=== PATIENT | female | born 1970 | race Caucasian/White ===

== ENCOUNTER 2018-09-14 17:49 | Emergency (ER) | payer OTHER ==
[~2018-09-14] VITALS: Ht 170.2 cm; Wt 126.0 kg
[~2018-09-14 17:49] MED LIST: ALPR-624 PO; IBUP-1051 PO; IBUP-1986 PO; TRAZ-89 PO
[2018-09-14 18:01] VITALS: BP 129/87
[2018-09-14] MEDS ORDERED: CLIN150C2 PO (18:37)
== END 2018-09-14 18:44 | disposition home or self-care (01) ==
LOC: ER 17:49
DX: H66.93 Otitis media, unspecified, bilateral (principal); J45.909 Unspecified asthma, uncomplicated; G89.29 Other chronic pain; Z98.890 Other specified postprocedural states; Z88.2 Allergy status to sulfonamides; Z79.2 Long term (current) use of antibiotics; Z79.899 Other long term (current) drug therapy
CPT/HCPCS: 99283

== ENCOUNTER 2018-11-10 20:53 | Emergency (ER) | payer OTHER ==
[~2018-11-10] VITALS: Ht 170.2 cm; Wt 113.0 kg
[2018-11-10 21:02] VITALS: BP 134/90
[2018-11-10] MEDS ORDERED: ibuprofen tablet 400 MG TABLET PO ONE (21:55)
[2018-11-10] MEDS ORDERED: acetaminophen 325mg tablet PO ONE (21:55)
== END 2018-11-10 22:20 | disposition home or self-care (01) ==
LOC: ER 20:54
DX: M25.521 Pain in right elbow (principal); J45.909 Unspecified asthma, uncomplicated; M19.90 Unspecified osteoarthritis, unspecified site; G89.29 Other chronic pain; Z98.890 Other specified postprocedural states; Z88.2 Allergy status to sulfonamides; Z79.899 Other long term (current) drug therapy
CPT/HCPCS: 73080; 99283

== ENCOUNTER 2018-12-09 17:48 | Emergency (ER) | payer OTHER ==
[~2018-12-09] VITALS: Ht 170.2 cm; Wt 119.0 kg
--- NOTE | 2018-12-09 19:45 | NUR ---
pt up to bathroom. apoligized for wait. patient is ok and understanding
[2018-12-09 21:25] LABS: ALANINE AMINOTRANSFERASE 21 U/L (12-78); ALBUMIN 3.7 G/DL (3.4-5.0); ALBUMIN/GLOBULIN RATIO 1.1 (1.1-1.5); ALKALINE PHOSPHATASE 69 IU/L (46-116); ANION GAP 8 (8-16); ASPARTATE AMINO TRANSFERASE 19 U/L (10-37); BILIRUBIN,TOTAL 0.3 MG/DL (0.1-1.0); BLOOD UREA NITROGEN 14 MG/DL (7-18); BUN/CREATININE RATIO 19.4 (6.6-38.0); CALCIUM 8.7 MG/DL (8.5-10.1); CHLORIDE 105 MMOL/L (99-107); CREATININE 0.72 MG/DL (0.40-0.90); GLUCOSE 90 MG/DL (70-104); POTASSIUM 4.2 MMOL/L (3.5-5.1); SODIUM 138 MMOL/L (135-145); TOTAL PROTEIN 7.2 G/DL (6.4-8.2); eGFR 87 ML/MIN
--- NOTE | 2018-12-09 21:26 | NUR ---
pt updated on plan- waiting labs.
[2018-12-09] MEDS ORDERED: ibuprofen tablet 400 MG TABLET PO ONE (21:55)
[2018-12-09 21:57] LABS: BASOPHILS % (AUTO) 0.2 % (0-1); EOSINOPHILS # (AUTO) 0.3 X10'3 (0-0.9); EOSINOPHILS % (AUTO) 3.2 % (0-6); HEMOGLOBIN 13.9 g/dl (12.0-16.0); LYMPHOCYTES # (AUTO) 3.7 X10'3 (1.1-4.8); LYMPHOCYTES % (AUTO) 36.5 % (21-51); MEAN CORPUSCULAR HEMOGLOBIN 32.6 PG (27.0-31.0); MEAN CORPUSCULAR HGB CONC 33.9 g/dL (33.0-36.5); MEAN CORPUSCULAR VOLUME 96.2 FL (78-98); MONOCYTES # (AUTO) 0.5 X10'3 (0-0.9); MONOCYTES % (AUTO) 5.1 % (2-12); NEUTROPHILS # (AUTO) 5.5 X10'3 (1.8-7.7); PLATELET COUNT 216 X10'3 (140-440); RED BLOOD COUNT 4.26 X10'6 (4.20-5.60); RED CELL DISTRIBUTION WIDTH 13.7 % (11.5-14.5); WHITE BLOOD COUNT 10.1 X10'3 (4.5-11.0)
[2018-12-09] MEDS ORDERED: dexamethasone sod phosphate 10mg/ml inj PO STA (22:01)
[2018-12-09 22:02] LABS: C-REACTIVE PROTEIN < 0.05 MG/DL (0.0-0.5)
[2018-12-09] MEDS ORDERED: AMOX-580 PO (22:04)
[2018-12-09] MEDS ORDERED: iohexol 300mg/ml 100ml inj. ONE (22:28)
--- NOTE | 2018-12-09 22:33 | NUR ---
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 she states she will let me know if she needs it
[2018-12-09] MEDS: morphine 4 MG/ML inj SYRINge IV ONE ×2 (22:36→23:13)
--- NOTE | 2018-12-09 23:09 | NUR ---
pt decided she will take the morphine and call for a ride home
[2018-12-09] MEDS ORDERED: PRED20TA PO (23:22)
[2018-12-09 23:31] VITALS: BP 115/81
== END 2018-12-09 23:35 | disposition home or self-care (01) ==
LOC: ER 17:48
DX: J32.9 Chronic sinusitis, unspecified (principal); J45.909 Unspecified asthma, uncomplicated; M19.90 Unspecified osteoarthritis, unspecified site; G89.29 Other chronic pain; Z88.2 Allergy status to sulfonamides; Z79.899 Other long term (current) drug therapy; Z98.890 Other specified postprocedural states
CPT/HCPCS: 36415; 70487; 70491; 80053; 84145; 85025; 86140; 96374; 99284; J1100; J2270; Q9967

== ENCOUNTER 2019-07-20 10:11 | Emergency (ER) | payer OTHER ==
[~2019-07-20] VITALS: Ht 172.7 cm; Wt 125.2 kg
[2019-07-20] MEDS ORDERED: ondansetron/PF 4mg/2ml inj IV ONE (10:40)
[2019-07-20] MEDS ORDERED: ketorolac tromethamine 15mg/ml inj. IV ONE (10:40)
[2019-07-20] MEDS ORDERED: normal saline 1000ML IV soln IVB ONE (10:40)
[2019-07-20 11:03] LABS: CLARITY,URINE CLEAR (Clear); COLOR,URINE YELLOW (Yellow); GLUCOSE, URINE NEGATIVE (Neg); KETONES,URINE NEGATIVE (Neg); LEUKOCYTE ESTERASE ,URINE NEGATIVE (Neg); NITRITES, URINE NEGATIVE (Neg); OCCULT BLOOD,URINE LARGE (Neg); PH,URINE 5.5 (4.8-8.0); PROTEIN,URINE NEGATIVE (Neg); UROBILINOGEN,URINE 0.2 E.U/dL (0.2-1.0)
[2019-07-20 11:05] LABS: BASOPHILS % (AUTO) 0.6 % (0-1); EOSINOPHILS # (AUTO) 0.1 X10'3 (0-0.9); EOSINOPHILS % (AUTO) 2.5 % (0-6); HEMOGLOBIN 13.8 g/dl (12.0-16.0); LYMPHOCYTES # (AUTO) 2.5 X10'3 (1.1-4.8); LYMPHOCYTES % (AUTO) 49.4 % (21-51); MEAN CORPUSCULAR HEMOGLOBIN 33.3 PG (27.0-31.0); MEAN CORPUSCULAR HGB CONC 34.4 g/dL (33.0-36.5); MEAN CORPUSCULAR VOLUME 96.6 FL (78-98); MEAN PLATELET VOLUME 8.5 FL (7.4-10.4); MONOCYTES # (AUTO) 0.4 X10'3 (0-0.9); MONOCYTES % (AUTO) 7.5 % (2-12); PLATELET COUNT 214 X10'3 (140-440); RED BLOOD COUNT 4.15 X10'6 (4.20-5.60); RED CELL DISTRIBUTION WIDTH 12.1 % (11.5-14.5); WHITE BLOOD COUNT 5.1 X10'3 (4.5-11.0)
[2019-07-20 11:06] LABS: UA COLLECTION TYPE CLN CATCH MIDSTREAM
[2019-07-20 11:09] LABS: BACTERIA,URINE FEW /HPF (Neg); MUCUS STRANDS NONE SEEN /LPF (Neg); SQUAMOUS EPITHELIAL CELL,UR FEW /LPF (FEW); WBC,URINE 0-4 /HPF (0-4)
[2019-07-20 11:18] LABS: ALANINE AMINOTRANSFERASE 17 U/L (12-78); ALBUMIN 3.4 G/DL (3.4-5.0); ALKALINE PHOSPHATASE 48 IU/L (46-116); ANION GAP 9 (8-16); ASPARTATE AMINO TRANSFERASE 13 U/L (10-37); BILIRUBIN,TOTAL 0.4 MG/DL (0.1-1.0); BLOOD UREA NITROGEN 5 MG/DL (7-18); BUN/CREATININE RATIO 6.9 (6.6-38.0); CALCIUM 8.1 MG/DL (8.5-10.1); CHLORIDE 109 MMOL/L (99-107); CREATININE 0.72 MG/DL (0.40-0.90); GLUCOSE 102 MG/DL (70-104); LIPASE 110 U/L (73-393); POTASSIUM 4.2 MMOL/L (3.5-5.1); SODIUM 143 MMOL/L (135-145); TOTAL CARBON DIOXIDE 24.8 MMOL/L (24-32); TOTAL PROTEIN 6.7 G/DL (6.4-8.2); eGFR 87 ML/MIN
[2019-07-20] MEDS ORDERED: morphine 4 MG/ML inj SYRINge IV ONE (12:10)
[2019-07-20] MEDS ORDERED: ONDA4TAB6 PO (12:34)
[2019-07-20 12:35] LABS: URINE HCG NEGATIVE (NEG)
[2019-07-20 12:51] VITALS: BP 112/55
== END 2019-07-20 12:52 | disposition home or self-care (01) ==
LOC: ER 10:13
DX: R10.823 Right lower quadrant rebound abdominal tenderness (principal); R10.32 Left lower quadrant pain; R31.9 Hematuria, unspecified; J45.909 Unspecified asthma, uncomplicated; M19.90 Unspecified osteoarthritis, unspecified site; G89.29 Other chronic pain; Z98.890 Other specified postprocedural states; Z88.2 Allergy status to sulfonamides; Z79.899 Other long term (current) drug therapy
CPT/HCPCS: 36415; 74176; 80053; 81001; 81025; 83690; 85025; 85610; 96374; 96375; 99284; J1885; J2270; J2405; J7030

== ENCOUNTER 2019-08-03 18:47 | Emergency (ER) | payer OTHER ==
[~2019-08-03] VITALS: Ht 172.7 cm; Wt 122.0 kg
[~2019-08-03 18:47] MED LIST changes: +ONDA4TAB6 PO
[2019-08-03 18:56] VITALS: BP 121/82
[2019-08-03] MEDS ORDERED: amox tr/potassium clavulanate 875/125mg TAB PO ONE (19:20)
[2019-08-03] MEDS ORDERED: ketorolac trometh inj. 60 MG/2 ML VIAL IM ONE (19:20)
[2019-08-03] MEDS ORDERED: AMOX-580 PO (19:24)
[2019-08-03] MEDS ORDERED: HYDR-4353 PO (19:24)
== END 2019-08-03 19:32 | disposition home or self-care (01) ==
LOC: ER 18:47
DX: L08.89 Other specified local infections of the skin and subcutaneous tissue (principal); T50.B95A Adverse effect of other viral vaccines, initial encounter; R53.81 Other malaise; J45.909 Unspecified asthma, uncomplicated; M19.90 Unspecified osteoarthritis, unspecified site; G89.29 Other chronic pain; Z98.890 Other specified postprocedural states; Z88.2 Allergy status to sulfonamides; Z79.2 Long term (current) use of antibiotics; Z79.899 Other long term (current) drug therapy; Y92.89 Other specified places as the place of occurrence of the external cause
CPT/HCPCS: 96372; 99284; J1885

== ENCOUNTER 2019-09-19 23:02 | Emergency (ER) | payer OTHER ==
[~2019-09-19] VITALS: Ht 172.7 cm; Wt 122.7 kg
[2019-09-19 23:24] VITALS: BP 131/80
[2019-09-20] MEDS ORDERED: ALBU8HFA PO (00:44)
[2019-09-20] MEDS ORDERED: AMOX500C2 PO (00:48)
[2019-09-20] MEDS ORDERED: amoxicillin 250mg capsule PO ONE (00:55)
== END 2019-09-20 01:05 | disposition home or self-care (01) ==
LOC: ER 23:02
DX: H66.93 Otitis media, unspecified, bilateral (principal); J45.909 Unspecified asthma, uncomplicated; M19.90 Unspecified osteoarthritis, unspecified site; G89.29 Other chronic pain; Z98.890 Other specified postprocedural states; Z88.2 Allergy status to sulfonamides; Z79.2 Long term (current) use of antibiotics; Z79.899 Other long term (current) drug therapy
CPT/HCPCS: 99283

== ENCOUNTER 2020-02-20 18:51 | Emergency (ER) | payer OTHER ==
[~2020-02-20] VITALS: Ht 172.7 cm; Wt 125.0 kg
[2020-02-20] MEDS ORDERED: ketorolac trometh. 30mg/ml inj. IM ONE (19:25)
[2020-02-20] MEDS ORDERED: BUTA-281 PO (19:28)
[2020-02-20 19:38] VITALS: BP 119/92
== END 2020-02-20 19:40 | disposition home or self-care (01) ==
LOC: ER 18:51
DX: R51 Headache (principal); M19.90 Unspecified osteoarthritis, unspecified site; G89.29 Other chronic pain; J45.909 Unspecified asthma, uncomplicated; Z98.890 Other specified postprocedural states; Z72.89 Other problems related to lifestyle; Z88.2 Allergy status to sulfonamides; Z79.899 Other long term (current) drug therapy
CPT/HCPCS: 96372; 99283; J1885

== ENCOUNTER 2020-05-22 19:11 | Emergency (ER) | payer BC, OTHER ==
[~2020-05-22] VITALS: Ht 170.2 cm; Wt 127.3 kg
[~2020-05-22 19:11] MED LIST changes: +BUTA-281 PO
[2020-05-22 19:17] VITALS: BP 135/88
[2020-05-22 20:25] LABS: D-DIMER 0.87 MG/L FEU (0-0.50)
[2020-05-22] MEDS ORDERED: ONDA4TAB6 PO (21:40)
[2020-05-22] MEDS ORDERED: HYDR-3965 PO (21:40)
== END 2020-05-22 21:52 | disposition home or self-care (01) ==
LOC: ER 19:13
DX: M25.572 Pain in left ankle and joints of left foot (principal); R22.42 Localized swelling, mass and lump, left lower limb; J45.909 Unspecified asthma, uncomplicated; M19.90 Unspecified osteoarthritis, unspecified site; G89.29 Other chronic pain; Z86.711 Personal history of pulmonary embolism; Z86.718 Personal history of other venous thrombosis and embolism; Z98.890 Other specified postprocedural states; Z88.2 Allergy status to sulfonamides; Z79.899 Other long term (current) drug therapy
CPT/HCPCS: 36415; 73610; 85379; 93005; 93971; 99285

== ENCOUNTER 2020-07-02 11:49 | Emergency (ER) | payer BC, OTHER ==
[~2020-07-02] VITALS: Ht 172.7 cm; Wt 138.2 kg
[2020-07-02] MEDS ORDERED: normal saline 1000ML IV soln IVB ONE (12:20)
[2020-07-02] MEDS ORDERED: ondansetron/PF 4mg/2ml inj IV ONE (12:20)
[2020-07-02 12:26] LABS: CLARITY,URINE CLEAR (Clear); COLOR,URINE STRAW (Yellow); GLUCOSE, URINE NEGATIVE (Neg); KETONES,URINE NEGATIVE (Neg); LEUKOCYTE ESTERASE ,URINE NEGATIVE (Neg); NITRITES, URINE NEGATIVE (Neg); OCCULT BLOOD,URINE NEGATIVE (Neg); PROTEIN,URINE NEGATIVE (Neg); UROBILINOGEN,URINE 0.2 E.U/dL (0.2-1.0)
[2020-07-02 12:27] LABS: UA COLLECTION TYPE CLN CATCH MIDSTREAM; URINE HCG NEGATIVE (NEG)
[2020-07-02 12:35] LABS: BASOPHILS % (AUTO) 0.5 % (0-1); EOSINOPHILS # (AUTO) 0.1 X10'3 (0-0.9); EOSINOPHILS % (AUTO) 1.8 % (0-6); HEMATOCRIT 41.5 % (35.0-45.0); HEMOGLOBIN 14.2 g/dl (12.0-16.0); LYMPHOCYTES # (AUTO) 3.4 X10'3 (1.1-4.8); LYMPHOCYTES % (AUTO) 43.4 % (21-51); MEAN CORPUSCULAR HEMOGLOBIN 32.4 PG (27.0-31.0); MEAN CORPUSCULAR HGB CONC 34.2 g/dL (33.0-36.5); MEAN CORPUSCULAR VOLUME 94.7 FL (78-98); MEAN PLATELET VOLUME 8.7 FL (7.4-10.4); MONOCYTES # (AUTO) 0.4 X10'3 (0-0.9); MONOCYTES % (AUTO) 5.4 % (2-12); NEUTROPHILS # (AUTO) 3.9 X10'3 (1.8-7.7); NEUTROPHILS % (AUTO) 48.9 % (42-75); PLATELET COUNT 234 X10'3 (140-440); RED BLOOD COUNT 4.38 X10'6 (4.20-5.60); RED CELL DISTRIBUTION WIDTH 12.3 % (11.5-14.5); WHITE BLOOD COUNT 7.9 X10'3 (4.5-11.0)
[2020-07-02 12:47] LABS: ALANINE AMINOTRANSFERASE 23 U/L (12-78); ALBUMIN 3.8 G/DL (3.4-5.0); ALKALINE PHOSPHATASE 62 IU/L (46-116); ANION GAP 7 (8-16); ASPARTATE AMINO TRANSFERASE 18 U/L (10-37); BILIRUBIN,TOTAL 0.3 MG/DL (0.1-1.0); BLOOD UREA NITROGEN 12 MG/DL (7-18); BUN/CREATININE RATIO 12.9 (6.6-38.0); CALCIUM 9.1 MG/DL (8.5-10.1); CHLORIDE 104 MMOL/L (99-107); CREATININE 0.93 MG/DL (0.40-0.90); GLUCOSE 107 MG/DL (70-104); LIPASE 144 U/L (73-393); POTASSIUM 4.2 MMOL/L (3.5-5.1); SODIUM 138 MMOL/L (135-145); TOTAL CARBON DIOXIDE 26.8 MMOL/L (24-32); TOTAL PROTEIN 7.5 G/DL (6.4-8.2); eGFR 65 ML/MIN
[2020-07-02] MEDS ORDERED: ketorolac tromethamine 15mg/ml inj. IV ONE (13:15)
[2020-07-02] MEDS ORDERED: morphine 4 MG/ML inj SYRINge IV ONE (13:15)
[2020-07-02 14:25] VITALS: BP 118/71
== END 2020-07-02 14:32 | disposition home or self-care (01) ==
LOC: ER 11:50
DX: K57.30 Diverticulosis of large intestine without perforation or abscess without bleeding (principal); K76.0 Fatty (change of) liver, not elsewhere classified; R35.0 Frequency of micturition; J45.909 Unspecified asthma, uncomplicated; M19.90 Unspecified osteoarthritis, unspecified site; G89.29 Other chronic pain; Z86.73 Personal history of transient ischemic attack (TIA), and cerebral infarction without residual deficits; Z72.89 Other problems related to lifestyle; Z88.2 Allergy status to sulfonamides; Z79.899 Other long term (current) drug therapy
CPT/HCPCS: 36415; 74176; 80053; 81003; 81025; 83690; 85025; 96361; 96374; 96375; 99284; J1885; J2270; J2405; J7030

== ENCOUNTER 2021-08-16 11:57 | Emergency (ER) | payer BC, OTHER ==
[~2021-08-16] VITALS: Ht 172.7 cm; Wt 129.0 kg
[2021-08-16 13:22] LABS: BASOPHILS % (AUTO) 0.2 % (0-1); EOSINOPHILS % (AUTO) 0.2 % (0-6); HEMATOCRIT 42.1 % (35.0-45.0); HEMOGLOBIN 14.2 g/dl (12.0-16.0); LYMPHOCYTES # (AUTO) 2.6 X10'3 (1.1-4.8); LYMPHOCYTES % (AUTO) 20.8 % (21-51); MEAN CORPUSCULAR HEMOGLOBIN 32.1 PG (27.0-31.0); MEAN CORPUSCULAR HGB CONC 33.6 g/dL (33.0-36.5); MEAN CORPUSCULAR VOLUME 95.6 FL (78-98); MEAN PLATELET VOLUME 8.4 FL (7.4-10.4); MONOCYTES # (AUTO) 0.8 X10'3 (0-0.9); NEUTROPHILS # (AUTO) 9.1 X10'3 (1.8-7.7); NEUTROPHILS % (AUTO) 72.8 % (42-75); PLATELET COUNT 247 X10'3 (140-440); RED BLOOD COUNT 4.41 X10'6 (4.20-5.60); WHITE BLOOD COUNT 12.5 X10'3 (4.5-11.0)
[2021-08-16 13:35] LABS: D-DIMER 0.58 MG/L FEU (0-0.50)
[2021-08-16 13:43] LABS: ALANINE AMINOTRANSFERASE 16 U/L (12-78); ALBUMIN 3.5 G/DL (3.4-5.0); ALKALINE PHOSPHATASE 68 IU/L (46-116); ANION GAP 6 (8-16); ASPARTATE AMINO TRANSFERASE 11 U/L (10-37); BILIRUBIN,TOTAL 0.5 MG/DL (0.1-1.0); BLOOD UREA NITROGEN 17 MG/DL (7-18); BUN/CREATININE RATIO 18.1 (6.6-38.0); CALCIUM 8.6 MG/DL (8.5-10.1); CHLORIDE 106 MMOL/L (99-107); CREATININE 0.94 MG/DL (0.40-0.90); GLUCOSE 112 MG/DL (70-104); POTASSIUM 3.7 MMOL/L (3.5-5.1); SODIUM 139 MMOL/L (135-145); TOTAL CARBON DIOXIDE 26.6 MMOL/L (24-32); TOTAL PROTEIN 7.1 G/DL (6.4-8.2); eGFR 63 ML/MIN
[2021-08-16] MEDS ORDERED: iohexol 350MG/ML 100ml bottle IV ONE (14:22)
--- NOTE | 2021-08-16 14:22 | NUR ---
CT AWARE PT HAS IV IN LEFT AC
[2021-08-16 14:53] VITALS: BP 134/77
[2021-08-16] MEDS ORDERED: RIVA15TA PO (16:07)
== END 2021-08-16 16:35 | disposition home or self-care (01) ==
LOC: ER 11:58
DX: J02.9 Acute pharyngitis, unspecified (principal); J81.0 Acute pulmonary edema; J45.909 Unspecified asthma, uncomplicated; Z88.2 Allergy status to sulfonamides; Z79.899 Other long term (current) drug therapy; Z20.822 Contact with and (suspected) exposure to COVID-19
CPT/HCPCS: 36415; 71045; 71275; 80053; 85025; 85379; 87635; 99285; C9803; Q9967

== ENCOUNTER 2021-09-02 16:39 | Emergency (ER) | payer BC ==
[~2021-09-02] VITALS: Ht 172.7 cm; Wt 140.0 kg
[~2021-09-02 16:39] MED LIST changes: +RIVA15TA PO
[2021-09-02 22:39] VITALS: BP 129/79
== END 2021-09-02 23:32 | disposition home or self-care (01) ==
LOC: ER 16:40
DX: S80.11XA Contusion of right lower leg, initial encounter (principal); R07.89 Other chest pain; R05.9 Cough, unspecified; J45.909 Unspecified asthma, uncomplicated; M19.90 Unspecified osteoarthritis, unspecified site; G89.29 Other chronic pain; Z86.711 Personal history of pulmonary embolism; Z86.718 Personal history of other venous thrombosis and embolism; Z98.890 Other specified postprocedural states; Z72.89 Other problems related to lifestyle; Z88.2 Allergy status to sulfonamides; Z79.899 Other long term (current) drug therapy; X58.XXXA Exposure to other specified factors, initial encounter; Y93.89 Activity, other specified; Y92.89 Other specified places as the place of occurrence of the external cause; Y99.8 Other external cause status
CPT/HCPCS: 71045; 93005; 93971; 99284

== ENCOUNTER 2021-12-18 10:20 | Emergency (ER) | payer BC ==
[~2021-12-18] VITALS: Ht 172.7 cm; Wt 144.0 kg
[2021-12-18 10:36] VITALS: BP 141/84
[2021-12-18 11:02] LABS: BASOPHILS % (AUTO) 0.3 % (0-1); EOSINOPHILS # (AUTO) 0.1 X10'3 (0-0.9); EOSINOPHILS % (AUTO) 1.1 % (0-6); HEMATOCRIT 41.1 % (35.0-45.0); LYMPHOCYTES # (AUTO) 3.6 X10'3 (1.1-4.8); LYMPHOCYTES % (AUTO) 48.2 % (21-51); MEAN CORPUSCULAR HEMOGLOBIN 31.8 PG (27.0-31.0); MEAN CORPUSCULAR VOLUME 93.5 FL (78-98); MEAN PLATELET VOLUME 8.4 FL (7.4-10.4); MONOCYTES # (AUTO) 0.4 X10'3 (0-0.9); MONOCYTES % (AUTO) 5.5 % (2-12); NEUTROPHILS # (AUTO) 3.3 X10'3 (1.8-7.7); NEUTROPHILS % (AUTO) 44.9 % (42-75); PLATELET COUNT 212 X10'3 (140-440); RED BLOOD COUNT 4.39 X10'6 (4.20-5.60); RED CELL DISTRIBUTION WIDTH 12.6 % (11.5-14.5); WHITE BLOOD COUNT 7.4 X10'3 (4.5-11.0)
[2021-12-18 11:20] LABS: ALANINE AMINOTRANSFERASE 20 U/L (12-78); ALBUMIN 3.6 G/DL (3.4-5.0); ALKALINE PHOSPHATASE 56 IU/L (46-116); ANION GAP 9 (8-16); ASPARTATE AMINO TRANSFERASE 17 U/L (10-37); BILIRUBIN,TOTAL 0.4 MG/DL (0.1-1.0); BLOOD UREA NITROGEN 13 MG/DL (7-18); BUN/CREATININE RATIO 17.1 (6.6-38.0); CALCIUM 8.8 MG/DL (8.5-10.1); CHLORIDE 106 MMOL/L (99-107); CREATININE 0.76 MG/DL (0.40-0.90); GLUCOSE 113 MG/DL (70-104); POTASSIUM 3.9 MMOL/L (3.5-5.1); SODIUM 140 MMOL/L (135-145); TOTAL CARBON DIOXIDE 25.3 MMOL/L (24-32); TOTAL PROTEIN 7.2 G/DL (6.4-8.2); eGFR 81 ML/MIN
== END 2021-12-18 15:07 | disposition home or self-care (01) ==
LOC: ER 10:21
DX: R07.9 Chest pain, unspecified (principal); R04.2 Hemoptysis; J45.909 Unspecified asthma, uncomplicated; G89.29 Other chronic pain; Z88.2 Allergy status to sulfonamides
CPT/HCPCS: 36415; 71045; 80053; 83880; 84484; 85025; 93005; 99285

== ENCOUNTER 2022-01-21 09:41 | Emergency (ER) | payer BC ==
[~2022-01-21] VITALS: Ht 172.7 cm; Wt 142.0 kg
[2022-01-21 09:52] VITALS: BP 144/83
== END 2022-01-21 11:10 | disposition home or self-care (01) ==
LOC: ER 09:41
DX: M79.672 Pain in left foot (principal); J45.909 Unspecified asthma, uncomplicated; M19.90 Unspecified osteoarthritis, unspecified site; G89.29 Other chronic pain; Z86.711 Personal history of pulmonary embolism; Z86.718 Personal history of other venous thrombosis and embolism; Z98.890 Other specified postprocedural states; Z72.89 Other problems related to lifestyle; Z88.2 Allergy status to sulfonamides; Z79.899 Other long term (current) drug therapy
CPT/HCPCS: 73630; 99283

== ENCOUNTER 2022-11-06 15:43 | Emergency (ER) | payer BC ==
[~2022-11-06] VITALS: Ht 172.7 cm; Wt 129.0 kg
[2022-11-06 15:51] VITALS: BP 135/88
[2022-11-06 15:56] LABS: BASOPHILS % (AUTO) 0.6 % (0-1); EOSINOPHILS # (AUTO) 0.1 X10'3 (0-0.9); EOSINOPHILS % (AUTO) 1.3 % (0-6); HEMATOCRIT 40.5 % (35.0-45.0); HEMOGLOBIN 13.7 g/dl (12.0-16.0); LYMPHOCYTES # (AUTO) 3.5 X10'3 (1.1-4.8); LYMPHOCYTES % (AUTO) 41.8 % (21-51); MEAN CORPUSCULAR HEMOGLOBIN 32.4 PG (27.0-31.0); MEAN CORPUSCULAR HGB CONC 33.9 g/dL (33.0-36.5); MEAN CORPUSCULAR VOLUME 95.6 FL (78-98); MEAN PLATELET VOLUME 8.2 FL (7.4-10.4); MONOCYTES # (AUTO) 0.6 X10'3 (0-0.9); MONOCYTES % (AUTO) 6.7 % (2-12); NEUTROPHILS # (AUTO) 4.2 X10'3 (1.8-7.7); NEUTROPHILS % (AUTO) 49.6 % (42-75); PLATELET COUNT 207 X10'3 (140-440); RED BLOOD COUNT 4.24 X10'6 (4.20-5.60); RED CELL DISTRIBUTION WIDTH 13.3 % (11.5-14.5); WHITE BLOOD COUNT 8.4 X10'3 (4.5-11.0)
[2022-11-06 16:18] LABS: ALANINE AMINOTRANSFERASE 20 U/L (12-78); ALBUMIN 3.6 G/DL (3.4-5.0); ALBUMIN/GLOBULIN RATIO 1.1 (1.1-1.5); ALKALINE PHOSPHATASE 75 IU/L (46-116); ANION GAP 6 (8-16); ASPARTATE AMINO TRANSFERASE 26 U/L (10-37); BILIRUBIN,TOTAL 0.4 MG/DL (0.1-1.0); BLOOD UREA NITROGEN 9 MG/DL (7-18); BUN/CREATININE RATIO 10.8 (6.6-38.0); CALCIUM 8.7 MG/DL (8.5-10.1); CHLORIDE 103 MMOL/L (99-107); CREATININE 0.83 MG/DL (0.40-0.90); GLUCOSE 118 MG/DL (70-104); MAGNESIUM 1.9 MG/DL (1.5-2.4); POTASSIUM 3.6 MMOL/L (3.5-5.1); SODIUM 137 MMOL/L (135-145); TOTAL CARBON DIOXIDE 28.3 MMOL/L (24-32); eGFR 73 ML/MIN
[2022-11-06] MEDS ORDERED: TRAM50TA2 PO (17:23)
== END 2022-11-06 17:54 | disposition home or self-care (01) ==
LOC: ER 15:44
DX: M94.0 Chondrocostal junction syndrome [Tietze] (principal); H66.001 Acute suppurative otitis media without spontaneous rupture of ear drum, right ear; I11.9 Hypertensive heart disease without heart failure; J45.909 Unspecified asthma, uncomplicated; Z88.2 Allergy status to sulfonamides; Z79.899 Other long term (current) drug therapy; Z79.1 Long term (current) use of non-steroidal anti-inflammatories (NSAID); Z79.2 Long term (current) use of antibiotics
CPT/HCPCS: 36415; 80053; 83735; 83880; 84484; 85025; 99283

== ENCOUNTER 2023-04-04 17:56 | Emergency (ER) | payer BC ==
[~2023-04-04] VITALS: Ht 170.2 cm; Wt 135.0 kg
[2023-04-04 18:38] VITALS: BP 123/84
[2023-04-04] MEDS ORDERED: SUMAtriptan succ. 6 MG/0.5ml vial SQ ONE (19:25)
[2023-04-04] MEDS ORDERED: proCHLORperazine 10 MG/2 ml inj IV ONE (19:25)
[2023-04-04] MEDS ORDERED: ketorolac tromethamine 15mg/ml inj. IV ONE (20:08)
== END 2023-04-04 21:28 | disposition home or self-care (01) ==
LOC: ER 17:56
DX: G43.909 Migraine, unspecified, not intractable, without status migrainosus (principal); J45.909 Unspecified asthma, uncomplicated; M19.90 Unspecified osteoarthritis, unspecified site; Z88.2 Allergy status to sulfonamides
CPT/HCPCS: 70450; 99284; J7030

== ENCOUNTER 2023-04-21 13:01 | Emergency (ER) | payer BC ==
[~2023-04-21] VITALS: Ht 170.2 cm; Wt 131.8 kg
[2023-04-21 13:06] VITALS: BP 136/106
[2023-04-21] MEDS ORDERED: HYDR-3973 PO (14:58)
[2023-04-21] MEDS ORDERED: FURO-149 PO (14:58)
[2023-04-21] MEDS ORDERED: POTA-366 PO (14:58)
[2023-04-21] MEDS ORDERED: TRAM50TA2 PO (15:10)
== END 2023-04-21 15:22 | disposition home or self-care (01) ==
LOC: ER 13:02
DX: M76.62 Achilles tendinitis, left leg (principal); I87.2 Venous insufficiency (chronic) (peripheral); J45.909 Unspecified asthma, uncomplicated; M19.90 Unspecified osteoarthritis, unspecified site; Z88.2 Allergy status to sulfonamides
CPT/HCPCS: 99283; L4360

== ENCOUNTER 2023-10-10 17:16 | Emergency (ER) | payer BC ==
[~2023-10-10] VITALS: Ht 172.7 cm; Wt 133.6 kg
[~2023-10-10 17:16] MED LIST changes: +FURO-149 PO; +POTA-366 PO
[2023-10-10 17:22] VITALS: BP 119/86; PULSE 85; RESP 18; TEMP 97.4; O2SAT 99
[2023-10-10 17:57] LABS: BASOPHILS % (AUTO) 0.6 % (0-1); EOSINOPHILS # (AUTO) 0.3 X10'3 (0-0.9); EOSINOPHILS % (AUTO) 3.8 % (0-6); HEMATOCRIT 43.1 % (35.0-45.0); HEMOGLOBIN 14.5 g/dl (12.0-16.0); LYMPHOCYTES % (AUTO) 39.1 % (21-51); MEAN CORPUSCULAR HGB CONC 33.7 g/dL (33.0-36.5); MEAN PLATELET VOLUME 8.8 FL (7.4-10.4); MONOCYTES # (AUTO) 0.5 X10'3 (0-0.9); MONOCYTES % (AUTO) 7.1 % (2-12); NEUTROPHILS # (AUTO) 3.8 X10'3 (1.8-7.7); NEUTROPHILS % (AUTO) 49.4 % (42-75); PLATELET COUNT 226 X10'3 (140-440); RED BLOOD COUNT 4.54 X10'6 (4.20-5.60); RED CELL DISTRIBUTION WIDTH 13.1 % (11.5-14.5); WHITE BLOOD COUNT 7.6 X10'3 (4.5-11.0)
[2023-10-10 18:15] LABS: ALANINE AMINOTRANSFERASE 9 U/L (12-78); ALBUMIN 3.6 G/DL (3.4-5.0); ALKALINE PHOSPHATASE 75 IU/L (46-116); ANION GAP 5 (8-16); ASPARTATE AMINO TRANSFERASE 16 U/L (10-37); BILIRUBIN,TOTAL 0.5 MG/DL (0.1-1.0); BLOOD UREA NITROGEN 8 MG/DL (7-18); BUN/CREATININE RATIO 10.7 (10.0-20.0); CALCIUM 9.1 MG/DL (8.5-10.1); CHLORIDE 104 MMOL/L (99-107); CREATININE 0.75 MG/DL (0.40-0.90); GLUCOSE 94 MG/DL (70-104); POTASSIUM 3.6 MMOL/L (3.5-5.1); SODIUM 138 MMOL/L (135-145); TOTAL CARBON DIOXIDE 28.9 MMOL/L (24-32); TOTAL PROTEIN 7.3 G/DL (6.4-8.2); eCRCL 90 ML/MIN; eGFR 81 ML/MIN
[2023-10-10 18:22] LABS: PRO BRAIN NATRIURETIC PEPTIDE 54 PG/ML (0-125)
[2023-10-10] MEDS ORDERED: ketorolac trometh inj. 60 MG/2 ML VIAL IM ONE (22:35)
[2023-10-10] MEDS ORDERED: triamcinolone acetonide 40mg/ml inj IM ONE (22:35)
[2023-10-10] MEDS ORDERED: acetaminophen 325mg tablet PO ONE (22:35)
== END 2023-10-11 00:49 | disposition home or self-care (01) ==
LOC: ER 17:16
DX: R60.0 Localized edema (principal); R06.02 Shortness of breath; J45.909 Unspecified asthma, uncomplicated; Z88.2 Allergy status to sulfonamides; Z79.899 Other long term (current) drug therapy
CPT/HCPCS: 36415; 71045; 80053; 83880; 84484; 85025; 93005; 93970; 99285

== ENCOUNTER 2024-01-05 05:42 | Day surgery (SDC) | payer BC ==
[2023-12-29 14:23] LABS: BILIRUBIN,URINE SMALL (Neg); CLARITY,URINE CLEAR (Clear); COLOR,URINE YELLOW (Yellow); GLUCOSE, URINE NEGATIVE (Neg); KETONES,URINE TRACE mg/dl (Neg); LEUKOCYTE ESTERASE ,URINE NEGATIVE (Neg); NITRITES, URINE NEGATIVE (Neg); OCCULT BLOOD,URINE NEGATIVE (Neg); PH,URINE 6.5 (4.8-8.0); PROTEIN,URINE NEGATIVE (Neg); UROBILINOGEN,URINE 0.2 E.U/dL (0.2-1.0)
[2023-12-29 14:24] LABS: UA COLLECTION TYPE CLN CATCH MIDSTREAM
[2023-12-29 14:26] LABS: BASOPHILS % (AUTO) 0.2 % (0-1); EOSINOPHILS # (AUTO) 0.1 X10'3 (0-0.9); EOSINOPHILS % (AUTO) 1.2 % (0-6); LYMPHOCYTES # (AUTO) 1.8 X10'3 (1.1-4.8); LYMPHOCYTES % (AUTO) 24.2 % (21-51); MEAN CORPUSCULAR HEMOGLOBIN 32.2 PG (27.0-31.0); MEAN CORPUSCULAR HGB CONC 33.8 g/dL (33.0-36.5); MEAN CORPUSCULAR VOLUME 95.1 FL (78-98); MEAN PLATELET VOLUME 8.7 FL (7.4-10.4); MONOCYTES # (AUTO) 0.4 X10'3 (0-0.9); MONOCYTES % (AUTO) 5.3 % (2-12); NEUTROPHILS # (AUTO) 5.1 X10'3 (1.8-7.7); NEUTROPHILS % (AUTO) 69.1 % (42-75); PRE OP HEMATOCRIT 43.2 % (35.0-45.0); PRE OP HEMOGLOBIN 14.6 g/dL (12.0-16.0); PRE OP PLATELET COUNT 204 X10'3 (140-440); PRE OP WHITE BLOOD COUNT 7.4 10'3 (4.8-10.8); RED BLOOD COUNT 4.54 X10'6 (4.20-5.60); RED CELL DISTRIBUTION WIDTH 13.5 % (11.5-14.5)
[2023-12-29 14:36] LABS: ALBUMIN 3.4 G/DL (3.4-5.0); ALBUMIN/GLOBULIN RATIO 0.9 (1.1-1.5); ALKALINE PHOSPHATASE 62 IU/L (46-116); BLOOD UREA NITROGEN 9 MG/DL (7-18); BUN/CREATININE RATIO 10.5 (10.0-20.0); CALCIUM 8.2 MG/DL (8.5-10.1); CHLORIDE 107 MMOL/L (99-107); CREATININE 0.86 MG/DL (0.40-0.90); PRE OP ALT 21 U/L (30-65); PRE OP ANION GAP 7 (8-16); PRE OP AST 17 U/L (10-37); PRE OP BILIRUB, TOTAL 0.8 MG/DL (0.0-1.0); PRE OP GLUCOSE 101 MG/DL (70-104); PRE OP POTASSIUM 3.4 MMOL/L (3.4-5.1); PRE OP SODIUM 142 MMOL/L (135-145); TOTAL CARBON DIOXIDE 28.5 MMOL/L (24-32); TOTAL PROTEIN 7.1 G/DL (6.4-8.2); eGFR 70 ML/MIN
[2024-01-05] VITALS (9 sets, daily range): BP systolic 111–128; BP diastolic 71–87; PULSE 71–89; RESP 11–18; TEMP 97–97.1; O2SAT 89–100
[~2024-01-05] VITALS: Ht 172.7 cm; Wt 135.9 kg
[~2024-01-05 05:42] MED LIST changes: +ALBU18HF2; +ALLO300T8 PO; -ALPR-624 PO; -BUTA-281 PO; -FURO-149 PO; -IBUP-1051 PO; -IBUP-1986 PO; -ONDA4TAB6 PO; -POTA-366 PO; +RIME75TA PO; -RIVA15TA PO; +RIVA20TA; -TRAZ-89 PO
[2024-01-05] MEDS: famotidine 20mg tablet PO ONE (06:15)
[2024-01-05] MEDS: ringers solution, lacted 1,000 ML IV SCH (06:17)
[2024-01-05] MEDS: cefazolin 2gm/D5W 100mL 100 ML IV ONE (06:18)
[2024-01-05] MEDS ORDERED: BUPIVAcaine/PF 2.5mg/ml (0.25%) 10ml vial ONE (06:52)
[2024-01-05] MEDS ORDERED: ROPIVAcaine 0.5% (5mg/ml) 30ml vial ONE ×2 (07:16)
[2024-01-05] MEDS ORDERED: LIDOcaine 2% (20mg/ml) 5ml vial ONE (07:16)
[2024-01-05] MEDS ORDERED: dexamethasone sod phosphate 4mg/ml inj. ONE (07:16)
[2024-01-05] MEDS ORDERED: propofol inj 20 ML IV ONE (07:16)
[2024-01-05] MEDS ORDERED: ondansetron/PF 4mg/2ml inj ONE (07:17)
[2024-01-05] MEDS ORDERED: fentaNYL /PF 50mcg/ml 5ml ampule ONE (07:18)
[2024-01-05] MEDS ORDERED: MIDAZolam 1 MG/ML 5ML VIAL ONE (07:18)
[2024-01-05] MEDS ORDERED: sevoflurane 250ml liquid IH ONE (07:22)
[2024-01-05] MEDS ORDERED: acetaminophen 1,000mg/100ml IV 100 ML IV ONE (08:10)
[2024-01-05] MEDS ORDERED: ondansetron/PF 4mg/2ml inj IV PRN (08:25)
[2024-01-05] MEDS ORDERED: ringers solution, lacted 1,000 ML IV SCH (08:25)
[2024-01-05] MEDS ORDERED: morphine 4 MG/ML inj SYRINge IV PRN (08:25)
[2024-01-05] MEDS ORDERED: ROPIVAcaine 0.2% (10 MG/5 ML) BOLUS INJECTION POPLITEAL PRN (08:25)
[2024-01-05] MEDS ORDERED: hydrALAZINE 20mg/ml inj. IV PRN (08:25)
[2024-01-05] MEDS ORDERED: labetalol 20mg/4ml (5mg/ml) syringe IV PRN (08:25)
[2024-01-05] MEDS ORDERED: fentaNYL/PF 50MCG/1 ML 2ML syringe IV PRN ×2 (08:25)
[2024-01-05] MEDS: bacitracin 15gm ointment TP ONE (09:33)
[2024-01-05] MEDS ORDERED: fentaNYL/PF 50MCG/1 ML 2ML syringe ONE (10:41)
[2024-01-05] MEDS: morphine 2 MG/ML inj. syringe IV PRN (11:31)
[2024-01-05] MEDS: ROPIVAcaine 0.2%/PF PUMP/bolus 545 ML POPLITEAL SCH (11:35)
[2024-01-05] MEDS: HYDROcodone/acetaminophen 5mg/325mg tablet PO ONE (12:23)
== END 2024-01-05 12:18 | disposition home or self-care (01) ==
LOC: PAS 05:42
PROVIDERS: ATTEND Podiatrist Foot & Ankle Surgery
DX: S93.432A Sprain of tibiofibular ligament of left ankle, initial encounter (principal); S93.325A Dislocation of tarsometatarsal joint of left foot, initial encounter; M25.372 Other instability, left ankle; M65.872 Other synovitis and tenosynovitis, left ankle and foot; M94.272 Chondromalacia, left ankle and joints of left foot; E66.01 Morbid (severe) obesity due to excess calories; Z68.42 Body mass index [BMI] 45.0-49.9, adult; J45.909 Unspecified asthma, uncomplicated; G43.909 Migraine, unspecified, not intractable, without status migrainosus; G89.18 Other acute postprocedural pain; Z79.899 Other long term (current) drug therapy; Z98.890 Other specified postprocedural states; Z79.01 Long term (current) use of anticoagulants; Z88.2 Allergy status to sulfonamides; X58.XXXA Exposure to other specified factors, initial encounter; Y93.89 Activity, other specified; Y92.89 Other specified places as the place of occurrence of the external cause; Y99.8 Other external cause status
CPT/HCPCS: 20900; 27829; 28730; 29895; 36415; 64446; 64447; 73620; 80053; 81003; 82948; 85025; A6222; A6223; C1713; J0131; J0690; J1100; J2250; J2270; J2405; J2704; J2795; J3010; J3490; J7030; J7120; Z7506; Z7508; Z7512; 76000; A4615; A4618; A6253; A6449; A7000

== ENCOUNTER 2024-06-04 09:49 | Emergency (ER) | payer BC ==
[~2024-06-04] VITALS: Ht 170.2 cm; Wt 136.5 kg
[~2024-06-04 09:49] MED LIST changes: +ALBU18HF2 INH; +PRED50TA PO
[2024-06-04 09:55] VITALS: BP 131/80; PULSE 81; TEMP 97.4; O2SAT 94
[2024-06-04 10:43] VITALS: RESP 14
[2024-06-04] MEDS: ketorolac trometh. 30mg/ml inj. IM ONE (10:43)
[2024-06-04] MEDS ORDERED: NAPR-1170 PO (10:52)
== END 2024-06-04 11:20 | disposition home or self-care (01) ==
LOC: ER 09:49
DX: S93.402A Sprain of unspecified ligament of left ankle, initial encounter (principal); J45.909 Unspecified asthma, uncomplicated; M19.90 Unspecified osteoarthritis, unspecified site; G89.29 Other chronic pain; Z88.2 Allergy status to sulfonamides; Z79.899 Other long term (current) drug therapy; W19.XXXA Unspecified fall, initial encounter; Y93.89 Activity, other specified; Y92.89 Other specified places as the place of occurrence of the external cause; Y99.8 Other external cause status
CPT/HCPCS: 73610; 73630; 96372; 99284; J1885

== ENCOUNTER 2024-06-29 18:08 | Emergency (ER) | payer BC ==
[~2024-06-29] VITALS: Ht 172.7 cm; Wt 136.3 kg
[~2024-06-29 18:08] MED LIST changes: +NAPR-1170 PO
[2024-06-29] MEDS ORDERED: proparacaine 0.5% ophthalmic drops 15ml EACHEYE ONE (18:30)
[2024-06-29 18:40] VITALS: BP 121/73; PULSE 79; RESP 16; TEMP 98.1; O2SAT 94
[2024-06-29] MEDS ORDERED: MINE3.5O43 EACHEYE (18:47)
[2024-06-29] MEDS: polyvinyl alcohol eye drops 15ML BOTTLE RIGHTEYE PRN (19:15)
== END 2024-06-29 19:20 | disposition home or self-care (01) ==
LOC: ER 18:09
DX: T15.81XA Foreign body in other and multiple parts of external eye, right eye, initial encounter (principal); J45.909 Unspecified asthma, uncomplicated; M19.90 Unspecified osteoarthritis, unspecified site; Z88.2 Allergy status to sulfonamides; Z79.899 Other long term (current) drug therapy
CPT/HCPCS: 99284

== ENCOUNTER 2024-08-10 11:32 | Emergency (ER) | payer BC ==
[~2024-08-10] VITALS: Ht 170.2 cm; Wt 115.0 kg
[~2024-08-10 11:32] MED LIST changes: +MINE3.5O43 EACHEYE
[2024-08-10 11:36] VITALS: TEMP 97.9
[2024-08-10 12:25] VITALS: BP 120/78; PULSE 68; RESP 16; O2SAT 99
== END 2024-08-10 12:30 | disposition home or self-care (01) ==
LOC: ER 11:33
DX: S90.111A Contusion of right great toe without damage to nail, initial encounter (principal); J45.909 Unspecified asthma, uncomplicated; M19.90 Unspecified osteoarthritis, unspecified site; Z88.2 Allergy status to sulfonamides; Z88.8 Allergy status to other drugs, medicaments and biological substances; Z88.6 Allergy status to analgesic agent; Z79.899 Other long term (current) drug therapy; Z86.718 Personal history of other venous thrombosis and embolism; Z86.711 Personal history of pulmonary embolism; W04.XXXA Fall while being carried or supported by other persons, initial encounter; Y93.89 Activity, other specified; Y92.89 Other specified places as the place of occurrence of the external cause; Y99.8 Other external cause status
CPT/HCPCS: 73630; 99283; L4360

== ENCOUNTER 2024-11-14 16:32 | Emergency (ER) | payer BC, MEDICAID ==
[~2024-11-14] VITALS: Ht 170.2 cm; Wt 140.9 kg
[2024-11-14 16:59] VITALS: TEMP 98
[2024-11-14] MEDS ORDERED: HYDR-3965 PO (19:04)
[2024-11-14] MEDS: ketorolac trometh 15mg/ml vial 15 MG/ML ML IM ONE (19:09)
[2024-11-14] MEDS: HYDROcodone/acetaminophen 5mg/325mg tablet PO ONE (19:09)
[2024-11-14 19:29] VITALS: BP 131/74; PULSE 69; O2SAT 100
[2024-11-14 19:32] VITALS: RESP 16
== END 2024-11-14 19:42 | disposition home or self-care (01) ==
LOC: ER 16:33
DX: M25.572 Pain in left ankle and joints of left foot (principal); M19.90 Unspecified osteoarthritis, unspecified site; J45.909 Unspecified asthma, uncomplicated; Z88.2 Allergy status to sulfonamides; Z98.890 Other specified postprocedural states
CPT/HCPCS: 73610; 96372; 99283; J1885; A6449

== ENCOUNTER 2024-12-31 09:00 | Outpatient (CLI) | payer MEDICAID ==
[2024-12-31 10:44] LABS: BILIRUBIN,URINE NEGATIVE (Neg); CLARITY,URINE CLEAR (Clear); COLOR,URINE YELLOW (Yellow); GLUCOSE, URINE NEGATIVE (Neg); KETONES,URINE NEGATIVE (Neg); LEUKOCYTE ESTERASE ,URINE NEGATIVE (Neg); NITRITES, URINE NEGATIVE (Neg); OCCULT BLOOD,URINE NEGATIVE (Neg); PROTEIN,URINE NEGATIVE (Neg); UROBILINOGEN,URINE 0.2 E.U/dL (0.2-1.0)
[2024-12-31 10:45] LABS: BASOPHILS % (AUTO) 0.4 % (0-1); EOSINOPHILS # (AUTO) 0.4 X10'3 (0-0.9); EOSINOPHILS % (AUTO) 4.3 % (0-6); LYMPHOCYTES # (AUTO) 2.4 X10'3 (1.1-4.8); LYMPHOCYTES % (AUTO) 28.7 % (21-51); MEAN CORPUSCULAR HGB CONC 33.6 g/dL (33.0-36.5); MEAN CORPUSCULAR VOLUME 95.2 FL (78-98); MEAN PLATELET VOLUME 8.3 FL (7.4-10.4); MONOCYTES # (AUTO) 0.4 X10'3 (0-0.9); MONOCYTES % (AUTO) 5.2 % (2-12); NEUTROPHILS # (AUTO) 5.1 X10'3 (1.8-7.7); NEUTROPHILS % (AUTO) 61.4 % (42-75); PRE OP HEMATOCRIT 44.3 % (35.0-45.0); PRE OP HEMOGLOBIN 14.9 g/dL (12.0-16.0); PRE OP PLATELET COUNT 234 X10'3 (140-440); PRE OP WHITE BLOOD COUNT 8.2 10'3 (4.8-10.8); RED BLOOD COUNT 4.65 X10'6 (4.20-5.60)
[2024-12-31 10:48] LABS: UA COLLECTION TYPE CLN CATCH MIDSTREAM
[2024-12-31] MEDS ORDERED: HYDR-3686 PO (10:59)
[2024-12-31] MEDS ORDERED: HYDR-3965 PO (10:59)
[2024-12-31] MEDS ORDERED: [UNRECOGNIZED DRUG - OTHER] PO (10:59)
[2024-12-31] MEDS ORDERED: ALPR-624 PO (10:59)
[2024-12-31] MEDS ORDERED: CYCL-394 PO (10:59)
[2024-12-31 11:02] LABS: ALBUMIN 3.6 G/DL (3.4-5.0); ALKALINE PHOSPHATASE 73 IU/L (46-116); BLOOD UREA NITROGEN 13 MG/DL (7-18); BUN/CREATININE RATIO 20.6 (10.0-20.0); CALCIUM 8.8 MG/DL (8.5-10.1); CHLORIDE 105 MMOL/L (99-107); CREATININE 0.63 MG/DL (0.40-0.90); PRE OP ALT 18 U/L (30-65); PRE OP ANION GAP 5 (8-16); PRE OP AST 2 U/L (10-37); PRE OP BILIRUB, TOTAL 0.3 MG/DL (0.0-1.0); PRE OP GLUCOSE 105 MG/DL (70-104); PRE OP POTASSIUM 4.1 MMOL/L (3.4-5.1); PRE OP SODIUM 142 MMOL/L (135-145); TOTAL PROTEIN 7.2 G/DL (6.4-8.2); eGFR > 90 ML/MIN
== END 2024-12-31 23:59 | disposition home or self-care (01) ==
LOC: PRE-OP 09:00 → EDSTATUS 01-09 12:00
PROVIDERS: ATTEND Podiatrist Foot & Ankle Surgery
DX: S82.843A Displaced bimalleolar fracture of unspecified lower leg, initial encounter for closed fracture (principal); M25.372 Other instability, left ankle; M25.472 Effusion, left ankle; S93.429A Sprain of deltoid ligament of unspecified ankle, initial encounter; M21.42 Flat foot [pes planus] (acquired), left foot; M19.079 Primary osteoarthritis, unspecified ankle and foot; M76.72 Peroneal tendinitis, left leg; Z00.00 Encounter for general adult medical examination without abnormal findings; X58.XXXA Exposure to other specified factors, initial encounter; Y93.89 Activity, other specified; Y92.89 Other specified places as the place of occurrence of the external cause; Y99.8 Other external cause status
CPT/HCPCS: 36415; 80053; 81003; 85025

== ENCOUNTER 2025-01-09 20:03 | Emergency (ER) | payer MEDICAID ==
[~2025-01-09] VITALS: Ht 170.2 cm; Wt 138.2 kg
[~2025-01-09 20:03] MED LIST changes: -ALBU18HF2 INH; -ALLO300T8 PO; +ALPR-624 PO; +CYCL-394 PO; +HYDR-3686 PO; +HYDR-3965 PO; -MINE3.5O43 EACHEYE; -NAPR-1170 PO; -PRED50TA PO; -RIME75TA PO; -RIVA20TA; +[UNRECOGNIZED DRUG - OTHER] PO
[2025-01-09 20:07] VITALS: BP 124/66; PULSE 84; O2SAT 100
[2025-01-09] MEDS: ketorolac trometh 30MG/ML vial 30 MG/ML VIAL IM ONE (22:18)
[2025-01-09] MEDS: HYDROmorphone 1 mg/ml syringe IM ONE (22:19)
[2025-01-09 22:22] VITALS: TEMP 97.6
[2025-01-09 22:26] VITALS: RESP 15
== END 2025-01-09 22:28 | disposition home or self-care (01) ==
LOC: ER 20:04
DX: G89.18 Other acute postprocedural pain (principal); J45.909 Unspecified asthma, uncomplicated; M19.90 Unspecified osteoarthritis, unspecified site; Z86.711 Personal history of pulmonary embolism; Z86.718 Personal history of other venous thrombosis and embolism; Z88.2 Allergy status to sulfonamides; Z79.899 Other long term (current) drug therapy; Z98.890 Other specified postprocedural states; Z72.89 Other problems related to lifestyle
CPT/HCPCS: 73620; 96372; 99284; J1171; J1885

== ENCOUNTER 2025-02-12 19:22 | Emergency (ER) | payer MEDICAID ==
[~2025-02-12] VITALS: Ht 170.2 cm; Wt 102.0 kg
[2025-02-12 19:33] VITALS: BP 156/87; PULSE 82; RESP 17; O2SAT 97
[2025-02-12 23:55] VITALS: TEMP 96.8
== END 2025-02-12 23:56 | disposition home or self-care (01) ==
LOC: ER 19:23
DX: M79.605 Pain in left leg (principal); J45.909 Unspecified asthma, uncomplicated; Z88.2 Allergy status to sulfonamides; Z86.711 Personal history of pulmonary embolism; Z86.718 Personal history of other venous thrombosis and embolism
CPT/HCPCS: 99281